=== PATIENT | male | born 1950 | race Caucasian/White ===

== ENCOUNTER 2017-04-26 10:28 | Inpatient (IN) | payer BC, MEDICARE ==
[~2017-04-26 10:28] MED LIST: ACETAMINOPHEN 1,000 MG/100 ML BTL IV ONE; CELECOXIB 100 MG CAPSULE PO ONE; FAMOTIDINE 20MG TABLET PO ONE; MECLIZINE 25 MG TABLET PO ONE; METOCLOPRAMIDE 10 MG TABLET PO ONE; VANCOMYCIN HCL 1,000 MG in 0.9 % SODIUM CHLORIDE 250ML 250 ML IVPB ONE
[2017-04-26] MEDS ORDERED: TRANEXAMIC ACID 1,000 MG/10 ML ML IV ONE (10:35)
[2017-04-26] MEDS ORDERED: BUPIVACAINE LIPOSOME 266MG/20ML VIAL IV ONE (10:35)
[2017-04-26] MEDS ORDERED: BUPIVACAINE 0.5% W/EPI MPF 30 ML VIAL IVP ONE (10:35)
[2017-04-26] MEDS ORDERED: HYDROMORPHONE HCL 1MG/ML **SYRINGE IM PRN (10:47)
[2017-04-26] MEDS ORDERED: HYDROMORPHONE HCL 2 MG/ML VIAL IM PRN (10:47)
[2017-04-26] MEDS ORDERED: MORPHINE SULFATE 5 MG/ML PFS IVP PRN ×4 (10:47)
[2017-04-26] MEDS ORDERED: METOCLOPRAMIDE HCL 10 MG/2 ML VIAL IVP PRN (10:47)
[2017-04-26] MEDS ORDERED: HYDROCODONE/APAP 7.5/325MG TABLET PO PRN (10:47)
[2017-04-26] MEDS ORDERED: NALOXONE 0.4 MG/1 ML VIAL IVP PRN (10:47)
[2017-04-26] MEDS ORDERED: ACETAMINOPHEN W/ CODEINE 300MG/60MG TABLET PO PRN ×2 (10:47)
[2017-04-26] MEDS ORDERED: TRAMADOL HCL 50 MG TABLET PO PRN ×2 (10:47)
[2017-04-26] MEDS ORDERED: ONDANSETRON HCL IV 4 MG/2 ML VIAL IVP PRN (10:47)
[2017-04-26] MEDS ORDERED: DIPHENHYDRAMINE HCL 25 MG CAPSULE PO PRN (10:47)
[2017-04-26] MEDS ORDERED: PROMETHAZINE HCL 12.5 MG in 0.9 % SODIUM CHLORIDE 100ML 50 ML IVPB PRN (10:47)
[2017-04-26] MEDS ORDERED: ACETAMINOPHEN 325 MG TAB PO PRN (10:47)
[2017-04-26] MEDS ORDERED: KETOROLAC 30 MG/ML VIAL IVP PRN ×2 (10:47)
[2017-04-26] MEDS ORDERED: MAGNESIUM HYDROXIDE 30 ML UDC PO PRN (10:47)
[2017-04-26] MEDS ORDERED: ZOLPIDEM TARTRATE 5 MG TABLET PO PRN (10:47)
[2017-04-26] MEDS ORDERED: HYDROCODONE/APAP 5/325MG TABLET PO PRN ×2 (10:47)
[2017-04-26] MEDS ORDERED: ACETAMINOPHEN W/ CODEINE 300MG/30MG TABLET PO PRN ×2 (10:47)
[2017-04-26] MEDS ORDERED: AL HYDROX/MAG HYDROX 30ML UD PO PRN (10:47)
[2017-04-26] MEDS ORDERED: BISACODYL 10 MG SUPP RC PRN (10:47)
[2017-04-26 12:15] LABS: ABO GROUP O; ANTIBODY SCREEN NEGATIVE (NEGATIVE); RH TYPE POSITIVE
[2017-04-26] MEDS ORDERED: DIPHENHYDRAMINE HCL IV 50 MG/ML VIAL IVP ONE (14:00)
[2017-04-26] MEDS ORDERED: LIDOCAINE 2% MDV (20MG/ML) 20ML VIAL IV ONE (14:00)
[2017-04-26] MEDS ORDERED: FENTANYL PF 100MCG/2ML VIAL IV ONE (14:00)
[2017-04-26] MEDS ORDERED: KETOROLAC 30 MG/ML VIAL IVP ONE (14:00)
[2017-04-26] MEDS ORDERED: VANCOMYCIN HCL 1 GM VIAL IVPB ONE (14:00)
[2017-04-26] MEDS ORDERED: PROPOFOL 10 MG/ML VIAL IV ONE (14:00)
[2017-04-26] MEDS ORDERED: HYDROMORPHONE HCL 2 MG/ML VIAL IV ONE (14:00)
[2017-04-26] MEDS ORDERED: VANCOMYCIN HCL 500 MG VIAL IV ONE (14:00)
[2017-04-26] MEDS ORDERED: MIDAZOLAM HCL 2MG/2ML VIAL IV ONE (14:00)
[2017-04-26] MEDS ORDERED: DEXTROSE 5 % AND 0.9 % NACL 1,000 ML IV PRN (14:30)
[2017-04-26] MEDS ORDERED: PROVENTIL INH PRN (16:12)
[2017-04-26] MEDS ORDERED: CEFAZOLIN 2 Gram 2 GM/50 ML BAG IVPB ONE (16:24)
[2017-04-26] MEDS ORDERED: FLU VAC QS 2017-18 (INPT, 6MO+) 60MCG/0.5ML IM ONE (16:37)
[2017-04-26] MEDS: HYDROCODONE/APAP 7.5/325MG TABLET PO PRN (18:09)
[2017-04-26] MEDS ORDERED: ATORVASTATIN 20 MG PO SCH (22:00)
[2017-04-26] MEDS: DOCUSATE SODIUM 100 MG CAPSULE PO SCH (22:15)
[2017-04-26] MEDS: VANCOMYCIN HCL 1,000 MG in 0.9 % SODIUM CHLORIDE 250ML 250 ML IVPB SCH (22:15)
[2017-04-26] MEDS: FERROUS SULFATE 325 MG TAB PO SCH (22:15)
[2017-04-26] MEDS: PATIENT OWN MED: ADVAIR 250/50 INH SCH (22:16)
[2017-04-26] MEDS: PATIENT OWN MED: METFORMIN ER 500 MG PO SCH (22:17)
[2017-04-27] MEDS: HYDROCODONE/APAP 7.5/325MG TABLET PO PRN ×2 (00:43→08:27)
[2017-04-27] MEDS: VANCOMYCIN HCL 1,000 MG in 0.9 % SODIUM CHLORIDE 250ML 250 ML IVPB SCH ×2 (00:47→14:01)
[2017-04-27 06:32] LABS: HEMATOCRIT 44.7 % (42.0-52.0); HEMOGLOBIN 13.4 gm/dl (14.0-18.0)
[2017-04-27] MEDS ORDERED: PATIENT OWN MED: PANTOPRAZOLE 40 MG PO SCH (07:00)
--- NOTE | 2017-04-27 07:59 | Operative Note ---
DATE OF SURGERY: 04/19/2017. PREOPERATIVE DIAGNOSIS: Endstage right knee arthrosis and knee arthritis. POSTOPERATIVE DIAGNOSIS: Endstage right knee arthrosis and knee arthritis. PROCEDURES: 1. Right total knee arthroplasty. 2. Lateral release. SURGEON: Jayme Flores M.D. ANESTHESIA: Spinal, Noah Rowland CRNA COMPLICATIONS: None. ESTIMATED BLOOD LOSS: Minimal. TOURNIQUET TIME: Approximately 70 minutes. COMPONENTS PLACED: A 2.0 gm vancomycin cemented [employer] Journey II size 6 Oxinium femoral component, a size 7 tibial baseplate, an 18 mm thick tibial poly insert, and 35 mm cemented patellar component. INDICATIONS: This is a 66-year-old male who has had persistent pain and dysfunction in both knees for several years. He is status post left total knee arthroplasty done by myself, and he is now scheduled for the right. I explained all risks and benefits of surgery in detail for the diagnosis and procedures including but not limited to infection, nerve injury, vessel injury, persistent pain, stiffness, numbness and tingling in the knee, periprosthetic fracture, need for resection arthroplasty if components are infected or loosen, the need for anticoagulation to prevent blood clots, the risks associated with these medications, and the need for further procedures. All of his questions were answered. The course was outlined and he agreed to proceed. DESCRIPTION OF PROCEDURE: The patient brought to the operating room and was placed in the supine position. Prepped for surgery. Spinal anesthesia induced. His right lower extremity and knee were prepped and draped in sterile fashion. The right knee prepped again with ChloraPrep and draped. Intraoperative time out was performed. Next, the incision was marked and infiltrated with 0.5% Marcaine with epinephrine. Exsanguinated the leg with Esmarch, flexed the knee, inflated the tourniquet to 250 mm Hg of pressure. Next, the skin and subcutaneous tissues were dissected down. Incised the capsule medially around the medial border of the patella to the tibial tubercle. Incised the vastus medialis in line with its fibers in a mid vastus approach. I everted the patella and partially resected the retropatellar fat pad. He had severe [id number] arthrosis and a deficient lateral condyle. Next I resected the anterior cruciate ligament and menisci. I drilled an intracondylar drill hole and inserted intramedullary guide emiyl with the 60- degree cutting block aligning the distal femoral condyles and pinned it in the + 2 mm position and cut the distal femoral condyles. Next, I placed a sizing jig on the distal femoral condyle and sized it to be right on size 6. Through the previously-placed pin holes, we then placed the 5 in 1 cutting jig. We dialed the anterior cut so it would come out flush without notching. We cut that and it was a good cut. We then cross pinned the cutting jig and cut the remaining chamfer cuts in the usual fashion. We placed a size 6 femoral component, and it fit nicely. We pinned it anteriorly and then removed osteophytes off the periphery. Next we inserted the femoral resection collet, and reamed that out with a box osteotome on the cruciate bone block. Next, attention was turned to the tibia. Placed the external alignment jig in the tibia, seated the spikes in the tubercular groove two fingerbreadths distal to the anterior tibial cortex. Referenced for a 7.0 mm cut off the higher lateral plateau. We pinned the cutting jig in place with two provisional anterior-posterior pins. We then rechecked alignment of the cutting jig with a drop emily until we had tibial anatomic access. We then cross pinned it and the cutting jig completed its fixation and cut the tibia. Next, we removed osteophytes off the posterior femoral condyles and checked the flexion and extension gaps. It was very loose in flexion, and we sized up in extension to a size 11. However, it was still very loose in flexion from several millimeters to a centimeter. Therefore we planned a more distal femoral cut so we could size up to a larger, thicker insert which we did. We then cut the distal femoral condyles in a +6.0 mm position. After we re- aligned our cutting jig, we then placed the chamfer cutting jig and cut the three chamfers in the usual fashion. We placed a trial 6 component and it fit nicely. Next, we rechecked the spacer block and placed it up to size +18 mm thickness. This allowed for 2.0 to 3.0 mm of varus and valgus laxity in flexion and extension with overall alignment cuts in extension. With use of the alignment emily we centered it in anatomic access over the hip joint and ankle joint. Flexion was much better with very minimal gap here now of a few millimeters, and it was more stable. Next we took the knee in flexion and sized the tibial baseplate to be size 7. We placed all trial components and set the rotation tibial baseplate in extension using the alignment emily centered on the anatomic access. Marked electrocautery sparks on the anterior tibial cortex off the laser sparks of the tibial baseplate. Next, I measured the patella and set the cutting jig to allow for a 9.0 mm thick poly insert at 13 mm. Cut the patella and it was remeasured and was on 13. I chamfered off the lateral patellar facet and sized it to be 35. I medialized as much as possible and drilled three peg holes. I placed the trial patellar component and then mixed cement. The patella tracked nicely with full extension and flexion to 140 to 150 degrees. Next, I aligned the tibial baseplate off the previously placed electrocautery sparks on the tibia. I pinned it in place and reamed out and keel punched out the keel hole. I placed a bone plug in the femoral canal hole and the drill bit in the tibial hole. I precoated both surfaces and then impacted down the tibial component and then the femoral component. I placed the trial poly liner and then clamped down the patellar component. I held the knee in extension until the cement hardened. Next, I took the knee in flexion, distraction of the knee with sponge and irrigated copiously. Removed all excess cement. Injected the posterior capsule mediolateral, periosteum, vastus medialis, and subcutaneous with 0.5% Marcaine with epinephrine, Exparel, and tranexamic acid mixture. He had received 1.0 gm intravenous preoperatively and postoperatively. Next, I inserted the real tibial poly insert with the insertion device and verified it was interlocked mediolaterally. I irrigated again copiously. Closed the knee in flexion. The patella was tight. Therefore, we did a pie crusting lateral release. Next, we closed the capsule with running #2 Quill suture. I closed the skin with 2-0 Vicryl and then a zip line was applied. Sterile dressing applied. The patient tolerated the procedure well. No intraoperative complications. Sponge, needle, and blade counts correct. Recovery room stable, neurovascularly intact. [facility]. He will likely be discharged home tomorrow. cc: Aniket Bates
--- NOTE | 2017-04-27 09:58 | Rehab Evaluation ---
Patient Information - Patient Information Diagnosis: OA right knee Ordered Treatment: PT Evaluate and Treat Status: Initial Evaluation Surgery: Yes (TKA right knee) Date of Surgery: 04/26/17 Past Medical/Surgical Hx: PAST MEDICAL/SURGICAL HISTORY Past Surgical History adnoids tonsils left TKA colon resection PMH - Respiratory Hx Respiratory Disorders Yes Hx Bronchitis Yes Hx Chronic Obstructive Yes: well controlled on inhalers. Pulmonary Disease (COPD) Hx Sleep Apnea Yes: no confirmed dx Hx of CPAP No Hx of URI Yes: RECENTLY-ON abx & FEELS "90% BETTER" Hx of SOB Yes PMH - Cardiovascular Hx Cardiovascular Disorders Yes Hx Hypertension Yes: on meds good control Hx Heart Murmur Yes: as a child Exercise Tolerance Fair PMH - Neuro Hx Neurological Disorders No PMH - GI Hx Gastrointestinal Disorders Yes Hx Diverticulitis Yes: perforation with colon resection Hx Gastroesophageal Reflux Yes PMH - Hx Genitourinary Disorders Yes Hx Prostate Problems Yes: enlarged PMH - Endocrine Hx Endocrine Disorders Yes Hx Diabetes Yes Hx of NIDDM Yes Comment: doesnt check blood sugar PMH - Musculoskeletal Hx Musculoskeletal Disorders Yes Hx Arthritis Yes PMH - Psych Hx Psychiatric Problems No PMH - Hematology/Oncology Hx Hematology/Oncology Yes Disorders Hx Blood Transfusion Reaction No Social History: Detail (Lives with in single story house with only two steps to get into house. Has all equipment needed for rehab after gets home. Will be having home health therapy initially then OP as needed to finish rehab.) Precautions: [place], Fall - Time With Patient Total Time Spent With Patient (Min): 30 Treatment Procedures: Detail (Patient seen in room and willing to get up to walk , just had pain pill and doing pretty well. Supine to sit with SBA only, sit to stand with CGA, ambulated with FWW re-adjusted to patient's height into bathroom then assisted patient to put on underwear, he was able to put on shorts himself. In trying to put on [place] shirt, pulled IV out and nursing came in to bandage and clean up blood. Sit to stand from toilet independently then ambulated in silvestre about 70 feet up to exit door. Rested in wheelchair for three minutes then ambulated to stairs with FWW and WBAT, CGA, ambulated down three steps with CGA, using rail and folded walker. Able to pivot around and walked back up three steps with rail, folded walker and CGA, good technique. Ambulated to wheelchair with FWW then wheeled back to room, transferred to bed with FWW and CGA, performed exercises in bed with good technique and very little assist. Left patient with tray table, compressive stockings re-attached, call light close and cold packs on knee.) Subjective Information - Subjective Information Per Patient Objective Data - Pain Pain Present: Yes Pain Scale Used: Numeric (1 - 10) (5/10) - Mental Status Patient Orientation: Oriented x3 - Visual Perception Appears within normal limits for therapeutic activities - ROM Within normal limits (except right knee -10 degrees extension to about 60 degrees of flexion) - Strength/Tone Within normal limits (except right quads 3-/5, hamstrings 4/5, hip flexors 3/5) - Coordination Appears within normal limits for therapeutic activities - Bed Mobility Independent - Transfers Independent - Balance Balance Sitting: Good Balance Standing: Good - Sensation Intact (Some pain after all we did this am with bathroom then walking and steps. ) - Gait Detail (Using FWW correctly and without difficulty) - ADL's/IADL's Detail - Special Tests No Therapy Assessment - Therapy Assessment Detail (Patient doing extremely well already and trying not to take a lot of pain meds, believe he should be able to go home today.) Patient Education - Patient Education Teaching Topic: Equipment Use, Exercise/Activity Response: Return Demonstration Teaching Method: Discussion, Demonstration Teaching Recipient: Patient Barriers To Learning: None Problem List - Problem List Physical Therapy Problem List: Detail (Some mobility issues but minimal at this time. Lots of swelling in right knee since cryocuff system not working well. Endurance still decreased as expected secondary to surgery. Able to WBAT and use of walker quite functional. Exercises coming along.) Goals - Goals Physical Therapy Goals: Patient will be independent with all bed mobility, transfers, gait with appropriate device for community distances and stairs as needed to go home safely. Prognosis - Prognosis Good (Patient has already ambulated 70 feet and performed steps as needed to get into/out of house.) Plan - Plan Physical Therapy Plan: Continue PT this afternoon as needed to increase endurance and independence with gait, transfers, bed mobility, ROM of knee to go home safely with .
[2017-04-27] MEDS ORDERED: RIVAROXABAN 10 MG TABLET PO SCH (10:00)
[2017-04-27] MEDS ORDERED: SPIRIVA HANDIHALER INH SCH (10:00)
[2017-04-27] MEDS ORDERED: IRBESARTAN 300 MG PO SCH (10:00)
[2017-04-27] MEDS ORDERED: CELECOXIB 100 MG CAPSULE PO SCH (10:00)
[2017-04-27] MEDS ORDERED: HCTZ PO SCH (10:00)
[2017-04-27] MEDS ORDERED: TRIAMTERENE PO SCH (10:00)
[2017-04-27] MEDS: FERROUS SULFATE 325 MG TAB PO SCH (10:24)
[2017-04-27] MEDS: DOCUSATE SODIUM 100 MG CAPSULE PO SCH (10:24)
[2017-04-27] MEDS: PATIENT OWN MED: METFORMIN ER 500 MG PO SCH (10:26)
[2017-04-27] MEDS: PATIENT OWN MED: ADVAIR 250/50 INH SCH (10:29)
[2017-04-27] MEDS ORDERED: IPRATROPIUM/ALBUTEROL (0.5MG/3MG) NEB INH SCH (14:15)
--- NOTE | 2017-04-27 14:56 | Rehab Evaluation ---
Patient Information - Patient Information Diagnosis: OA right knee Ordered Treatment: OT Evaluate and Treat Status: Initial Evaluation Surgery: Yes (TKA right knee) Date of Surgery: 04/26/17 Past Medical/Surgical Hx: PAST MEDICAL/SURGICAL HISTORY Past Surgical History adnoids tonsils left TKA colon resection PMH - Respiratory Hx Respiratory Disorders Yes Hx Bronchitis Yes Hx Chronic Obstructive Yes: well controlled on inhalers. Pulmonary Disease (COPD) Hx Sleep Apnea Yes: no confirmed dx Hx of CPAP No Hx of URI Yes: RECENTLY-ON abx & FEELS "90% BETTER" Hx of SOB Yes PMH - Cardiovascular Hx Cardiovascular Disorders Yes Hx Hypertension Yes: on meds good control Hx Heart Murmur Yes: as a child Exercise Tolerance Fair PMH - Neuro Hx Neurological Disorders No PMH - GI Hx Gastrointestinal Disorders Yes Hx Diverticulitis Yes: perforation with colon resection Hx Gastroesophageal Reflux Yes PMH - Hx Genitourinary Disorders Yes Hx Prostate Problems Yes: enlarged PMH - Endocrine Hx Endocrine Disorders Yes Hx Diabetes Yes Hx of NIDDM Yes Comment: doesnt check blood sugar PMH - Musculoskeletal Hx Musculoskeletal Disorders Yes Hx Arthritis Yes PMH - Psych Hx Psychiatric Problems No PMH - Hematology/Oncology Hx Hematology/Oncology Yes Disorders Hx Blood Transfusion Reaction No Premorbid Status: Detail (Pt lives with spouse in a 1 story house, no basement. He has 2 steps, no railing at entrance. He has a tub/shower combination with extended tub bench, elevated toilet with sink that he uses for sit to stand. His is responsible for home mgmt, meal prep, laundry and she assists him as needed for dressing. He has a commode, sock aid, 2 wheeled walker, crutches , straight cane for use at home.) Precautions: [place], Fall - Time With Patient Total Time Spent With Patient (Min): 40 Treatment Procedures: Detail (OT eval low complexity) Subjective Information - Subjective Information Per Patient Objective Data - Pain Pain Present: Yes (12/12 pain right knee) - Mental Status Patient Orientation: Oriented x3 - Visual Perception Appears within normal limits for therapeutic activities - ROM Within normal limits ([place] UE AROM WNL) - Strength/Tone Within normal limits ([place]ino UE strength WNL) - Coordination Appears within normal limits for therapeutic activities - Sensation Intact - ADL's/IADL's Detail (Pt reports he has experience with all adaptive equipment and his will assist if needed. He purchased a furnace tender and already has a sock aid. He feels confident with LE dressing technique using adaptive equipment.) Therapy Assessment - Therapy Assessment Detail (Pt feels confident with self care activities using adaptive equipment.) Problem List - Problem List Physical Therapy Problem List: Detail (Some mobility issues but minimal at this time. Lots of swelling in right knee since cryocuff system not working well. Endurance still decreased as expected secondary to surgery. Able to WBAT and use of walker quite functional. Exercises coming along.) Occupational Therapy Problem List: Detail (No current OT problems at this time.) Goals - Goals Physical Therapy Goals: Patient will be independent with all bed mobility, transfers, gait with appropriate device for community distances and stairs as needed to go home safely. Occupational Therapy Goals: No current OT goals identified. Prognosis - Prognosis Good Plan - Plan Physical Therapy Plan: Continue PT this afternoon as needed to increase endurance and independence with gait, transfers, bed mobility, ROM of knee to go home safely with . Occupational Therapy Plan: No further IP OT recommended. Thank you for this referral.
--- NOTE | 2017-04-27 15:41 | Physical Therapy Tx Note ---
Physical Therapy Tx Note - Treatment Note Tolerated: Good (Patient having breathing issues and issues with O2 sats so has had an US today to rule out blood clots. No clots but does have some issues in lungs and has been on O2 this afternoon and nurse suggested use O2 with walking. Did very well with walking using FWW and O2 at 2L/min, CGA with gait but patient did not really need it. Independent with gait.) Total Time Spent With Patient: 30 Physical Therapy Tx Note: Detail (Patient seen bedside and ambulated with FWW, O2 at 2L/min, FWW to bathroom first then in silvestre about 100 feet to nurses station then back to room. Has cryocuff environmental field services technician in room trying to tell patient and about machine which hasn't been working today. Left patient in nurses care to re-attach compressive stockings and she is checking O2 sats at intervals. Did knee exercises before got up to walk with heel slides, SLR, ankle pumps and isometrics.) Physical Therapy Problem List: Detail (Some mobility issues but minimal at this time. Lots of swelling in right knee since cryocuff system not working well. Endurance still decreased as expected secondary to surgery. Able to WBAT and use of walker quite functional. Exercises coming along.) Physical Therapy Goals: Patient will be independent with all bed mobility, transfers, gait with appropriate device for community distances and stairs as needed to go home safely. Prognosis: Good (Patient doing very well and if O2 sats are OK, should be able to go home today but nurse is checking that out now. Patient independent with mobility, gait, exercises and only needs slight assist with stairs. If needs O2 at home, may have to stay overnight.) Physical Therapy Plan: Continue PT this afternoon as needed to increase endurance and independence with gait, transfers, bed mobility, ROM of knee to go home safely with . Patient having some difficulty with O2 so not sure will be discharged home today. If stays overnight, will be seen in am for gait and mobility to make sure independent.
--- NOTE | 2017-04-27 18:13 | Discharge Note ---
VTE H&P Assessment - Risk for VTE Risk for VTE: No Risk Level: Very Low Risk Assessment Date: 04/26/17 Risk Assessment Time: 18:00 VTE Orders Placed or Will Be Placed: No VTE Reason for No Prophylaxis: Not Indicated Discharge Note - Date Date of Discharge Note: 04/27/17 Instructions: Hydrocodone/Acetaminophen (By mouth), Celecoxib (By mouth), Rivaroxaban (By mouth), Precautions after Total Joint Replacement Surgery (DC), Knee Replacement (DC) Additional Instructions: 2 Activity: Ambulate Only With Your Walker As Per Physical Therapy Increase Activity as Tolerated Resume Usual Activities As Tolerated 2 Diet: Regular Diet 2 Consults: [[place] visiting nurses] 2 Follow Up: [With Dr. Rios at scheduled appt in 2 weeks, and they will decide at that time if they will remove zipline] 2 Dressing/Wound Care: Keep dressing clean, dry and intact at all times, if aquacel becomes saturated have visiting nurses replace dressing and use a zipline guard. Dressing needs to be changed 05/03/17 (Type) Adhesive Dressing (Change) As needed 2 Additional: [Continue home medications, except discontinue ibuprofen New medications Celebrex as prescribed [place] as prescribed one every 4-6 hours Xarelto as prescribed incentive spirometry hourly while awake use albuterol inhaler 1-2 puff every 4 hours while awake(rescue inhaler) use spiriva one puff a day use advair 1 puff twice a day follow up with Dr. Ruano in one to two weeks to have an outpatient sleep study done for FRANDY ] Referrals: ANDRIA RIOS M.D. [MEDICAL DOCTOR] - Erich Mckinney D.O. [DOCTOR OF OSTEOPATH] - SUSANNAH DUARTE [Primary Care Provider] - Activity at Discharge: Ambulate Only With Your Walker, As Per Physical Therapy, Increase Activity as Tolerated, Resume Usual Activities As Tolerated
--- NOTE | 2017-04-28 07:55 | CT ANGIOGRAM REPORT ---
EXAM: CTA OF THE CHEST HISTORY: LOW OXYGEN SATURATION. TECHNIQUE: CTA of the chest was performed following IV administration of 100 ml of Omnipaque 350 contrast. Axial images were obtained with coronal and sagittal MIP reconstructions. Comparison: None. FINDINGS: The visualized thyroid gland enhances normally. The pulmonary artery is suboptimally opacified with contrast. The distal arterial branches are nondiagnostic for the assessment of pulmonary embolus. There is no large or central pulmonary embolus. Negative for thoracic aortic aneurysm or dissection. Coronary artery calcification. Limited evaluation of the upper abdomen is unremarkable. The osseous structures are grossly intact. No pneumothorax. The visualized airways are patent. Subsegmental atelectasis in each lung base. The lungs are otherwise clear. IMPRESSION: 1. SUBOPTIMAL EXAM DUE TO SUBOPTIMAL CONTRAST BOLUS. NO LARGE OR CENTRAL PE. 2. SUBSEGMENTAL ATELECTASIS IN THE LUNG BASES BILATERALLY. JOB NUMBER: [id number] MTDD
== END 2017-04-27 19:00 | disposition home or self-care (01) | DRG 470 ==
LOC: MEDSURG 10:28
PROVIDERS: ADMIT Orthopaedic Surgery; ATTEND Orthopaedic Surgery
PROC: 0SRC069 Replacement of Right Knee Joint with Oxidized Zirconium on Polyethylene Synthetic Substitute, Cemented, Open Approach (ICD-10-PCS; principal; 2017-04-26 13:00)
DX: M17.11 Unilateral primary osteoarthritis, right knee (principal); J98.11 Atelectasis; J44.9 Chronic obstructive pulmonary disease, unspecified; I10 Essential (primary) hypertension; E11.9 Type 2 diabetes mellitus without complications; Z79.84 Long term (current) use of oral hypoglycemic drugs; E78.00 Pure hypercholesterolemia, unspecified
CPT/HCPCS: 36416; 71275; 82948; 85014; 85018; 86850; 86900; 86901; 90686; 94760; 97110; 97116; 97165; 99233; J1200; J1885; J3370; J7050